=== PATIENT | male | born 1950 | race Caucasian/White ===

== ENCOUNTER 2019-10-15 14:32 | Observation (INO) | payer MEDICARE ==
[~2019-10-15] VITALS: Ht 188 cm; Wt 97.0 kg
[~2019-10-15 14:32] MED LIST: CLAR250T43 PO; HYDR-3965 PO; METR-159 PO; NO HOME MEDS; PANT40VI2 PO
[2019-10-15 15:18] LABS: EOSINOPHILS # (AUTO) 0.1 X10'3 (0-0.9); LYMPHOCYTES # (AUTO) 1.7 X10'3 (1.1-4.8); MONOCYTES # (AUTO) 0.7 X10'3 (0-0.9); NEUTROPHILS # (AUTO) 4.6 X10'3 (1.8-7.7); WHITE BLOOD COUNT 7.1 X10'3 (4.5-11.0)
[2019-10-15 15:20] LABS: BASOPHILS % (AUTO) 0.6 % (0-1); HEMATOCRIT 48.6 % (42.0-52.0); HEMOGLOBIN 16.5 g/dl (14.0-17.9); LYMPHOCYTES % (AUTO) 24.1 % (21-51); MEAN CORPUSCULAR HEMOGLOBIN 29.8 PG (27.0-31.0); MEAN CORPUSCULAR HGB CONC 33.9 g/dL (33.0-36.5); MEAN CORPUSCULAR VOLUME 87.9 FL (78-98); MEAN PLATELET VOLUME 9.1 FL (7.4-10.4); MONOCYTES % (AUTO) 9.9 % (2-12); NEUTROPHILS % (AUTO) 64.4 % (42-75); PLATELET COUNT 151 X10'3 (140-440); RED BLOOD COUNT 5.52 X10'6 (4.70-6.10); RED CELL DISTRIBUTION WIDTH 13.6 % (11.5-14.5)
[2019-10-15 15:24] LABS: ALANINE AMINOTRANSFERASE 40 U/L (12-78); ALBUMIN 3.6 G/DL (3.4-5.0); ALKALINE PHOSPHATASE 56 IU/L (46-116); ANION GAP 6 (8-16); ASPARTATE AMINO TRANSFERASE 25 U/L (10-37); BILIRUBIN,TOTAL 0.4 MG/DL (0.1-1.0); BLOOD UREA NITROGEN 13 MG/DL (7-18); BUN/CREATININE RATIO 13.7 (5.4-32.0); CALCIUM 8.8 MG/DL (8.5-10.1); CHLORIDE 104 MMOL/L (99-107); CREATININE 0.95 MG/DL (0.60-1.10); GLUCOSE 125 MG/DL (70-104); POTASSIUM 3.8 MMOL/L (3.5-5.1); SODIUM 139 MMOL/L (135-145); TOTAL CARBON DIOXIDE 28.7 MMOL/L (24-32); TOTAL PROTEIN 7.2 G/DL (6.4-8.2); eGFR 79 ML/MIN
[2019-10-15 15:35] LABS: D-DIMER < 0.19 MG/L FEU (0-0.50)
--- NOTE | 2019-10-15 16:00 | NUR ---
PATIENT AMBULATED WITH STANDBY ASSISTp: NO SOB, NO CP, 150 FEET
[2019-10-15] MEDS ORDERED: OMEP-297 PO (16:15)
[2019-10-15] MEDS ORDERED: potassium Cl 20 mEq SR tablet PO PRN ×2 (16:30)
[2019-10-15] MEDS ORDERED: magnesium 4gm in 100ml NS 100 ML IV PRN (16:30)
[2019-10-15] MEDS ORDERED: nitroGLYCERIN 0.4mg SUBLingual tab SL PRN ×2 (16:30→19:35)
[2019-10-15] MEDS ORDERED: potassium CL 10mEq/100ml bag 100 ML IV PRN ×2 (16:30)
[2019-10-15] MEDS ORDERED: acetaminophen 325mg tablet PO PRN ×2 (16:30)
[2019-10-15] MEDS ORDERED: magnesium Cl slow-release 64mg tablet PO PRN (16:30)
[2019-10-15] MEDS ORDERED: ondansetron/PF 4mg/2ml inj IV PRN (16:30)
[2019-10-15] MEDS ORDERED: morphine 2 MG/ML inj. syringe IV PRN ×2 (16:30)
[2019-10-15] MEDS ORDERED: magnesium 2GM in 50ml NS 50 ML IV PRN (16:30)
[2019-10-15] MEDS ORDERED: magnesium hydroxide 30ml (MOM) UD suspension PO PRN (16:30)
[2019-10-15] MEDS ORDERED: mag hydrox/Alum hydrox/simeth 30ml oral suspension PO PRN (16:30)
[2019-10-15] MEDS ORDERED: iohexol 350MG/ML 100ml bottle IV ONE (16:45)
[2019-10-15] MEDS ORDERED: metoprolol tartrate 1mg/ml inj IV PRN (19:35)
[2019-10-15] MEDS ORDERED: regadenoson 0.4mg/5ml syringe IV PRN (19:35)
[2019-10-15] MEDS ORDERED: aminophylline 250mg/10ml inj. IV PRN (19:35)
[2019-10-15] MEDS: K and/or MAG REPLACEMENT MC SCH (20:00)
[2019-10-15] MEDS ORDERED: metoprolol tartrate 50mg tablet PO SCH (20:00)
[2019-10-15] MEDS ORDERED: metoprolol tartrate 12.5mg (1/2 tablet) PO SCH (20:47)
[2019-10-15] MEDS ORDERED: metoprolol tartrate 12.5mg (1/2 tablet) PO ONE (20:55)
[2019-10-15] MEDS ORDERED: metoprolol tartrate 50mg tablet PO ONE (20:55)
--- NOTE | 2019-10-15 21:45 | NUR ---
RECEIVED PATIENT TO ROOM 4013B FROM ER AND ASSUMED PATIENT CARE. ALL BELONGINGS WITH PATIENT. NO C/O CHEST PAIN AT THIS TIME. PLAN OF CARE EXPLAINED. ALL QUESTIONS ANSWERED
[2019-10-15 22:05] VITALS: BP 159/103
[2019-10-15 22:19] LABS: HEMOGLOBIN A1C 6.4 % (4.5-6.2)
[2019-10-16] VITALS (8 sets, daily range): BP systolic 118–138; BP diastolic 60–89
[2019-10-16 02:46] LABS: BASOPHILS % (AUTO) 0.5 % (0-1); EOSINOPHILS # (AUTO) 0.2 X10'3 (0-0.9); HEMATOCRIT 47.7 % (42.0-52.0); HEMOGLOBIN 16.5 g/dl (14.0-17.9); LYMPHOCYTES # (AUTO) 2.8 X10'3 (1.1-4.8); LYMPHOCYTES % (AUTO) 35.4 % (21-51); MEAN CORPUSCULAR HEMOGLOBIN 30.2 PG (27.0-31.0); MEAN CORPUSCULAR HGB CONC 34.6 g/dL (33.0-36.5); MEAN CORPUSCULAR VOLUME 87.1 FL (78-98); MEAN PLATELET VOLUME 9.3 FL (7.4-10.4); MONOCYTES # (AUTO) 0.9 X10'3 (0-0.9); MONOCYTES % (AUTO) 11.1 % (2-12); NEUTROPHILS # (AUTO) 4.1 X10'3 (1.8-7.7); PLATELET COUNT 152 X10'3 (140-440); RED BLOOD COUNT 5.48 X10'6 (4.70-6.10); RED CELL DISTRIBUTION WIDTH 13.7 % (11.5-14.5)
[2019-10-16 03:00] LABS: ALBUMIN 3.3 G/DL (3.4-5.0); ANION GAP 8 (8-16); BLOOD UREA NITROGEN 14 MG/DL (7-18); BUN/CREATININE RATIO 15.2 (5.4-32.0); CALCIUM 8.6 MG/DL (8.5-10.1); CHLORIDE 106 MMOL/L (99-107); CREATININE 0.92 MG/DL (0.60-1.10); GLUCOSE 135 MG/DL (70-104); MAGNESIUM 1.9 MG/DL (1.5-2.4); POTASSIUM 3.6 MMOL/L (3.5-5.1); SODIUM 140 MMOL/L (135-145); TOTAL CARBON DIOXIDE 26.2 MMOL/L (24-32); eGFR 82 ML/MIN
[2019-10-16 03:01] LABS: CHOL/HDL RATIO 2.6 (0.00-4.99); CHOLESTEROL 124 MG/DL (0-200); HDL CHOLESTEROL 48 MG/DL (35-60); LDL CHOLESTEROL 70 MG/DL (50-100); TRIGLYCERIDES 87 MG/DL (20-135)
--- NOTE | 2019-10-16 06:00 | NUR ---
REPORT GIVEN TO RAYSHAWN BENNETT
--- NOTE | 2019-10-16 06:44 | NUR ---
Patient in room [facility]TH[facility] 4013B. I have received report from GEMMA BENNETT and had the opportunity to ask questions and assume patient care.
[2019-10-16] MEDS: K and/or MAG REPLACEMENT MC SCH (07:22)
[2019-10-16] MEDS ORDERED: pantoprazole 40mg Tablet.DR PO SCH (07:30)
[2019-10-16] MEDS ORDERED: aspirin 325mg tablet, delayed-release (Ecotrin) PO SCH (08:00)
[2019-10-16] MEDS ORDERED: enoxaparin 40mg/0.4ml syringe SQ SCH (08:00)
--- NOTE | 2019-10-16 12:37 | NUR ---
DM Consult: Pt A1C <7 and not appropriate for ed at this time. Addendum: 10/16/19 at [address] Amended: Links added.
[2019-10-16] MEDS ORDERED: ASPI81TA52 PO (16:10)
[2019-10-16] MEDS ORDERED: METO25TA6 PO (16:10)
[2019-10-16] MEDS ORDERED: NITR0.4T51 SL (16:10)
--- NOTE | 2019-10-16 16:45 | NUR ---
PT DC HOME WITH , RX CALLED TO [facility]. PT STABLE.
== END 2019-10-16 16:45 | disposition home or self-care (01) ==
LOC: ER 14:32 → ED HOLD 16:45 → ORTHO 4S 21:30
PROVIDERS: ADMIT Hospitalist; ATTEND Hospitalist
DX: R07.89 Other chest pain (principal); R00.2 Palpitations; I10 Essential (primary) hypertension; R42 Dizziness and giddiness; E11.9 Type 2 diabetes mellitus without complications; R09.02 Hypoxemia; Z90.89 Acquired absence of other organs; Z79.899 Other long term (current) drug therapy; Z88.0 Allergy status to penicillin
CPT/HCPCS: 36415; 71045; 71275; 78452; 80048; 80053; 80061; 83036; 83735; 84484; 85025; 85379; 87081; 93005; 93017; 93306; 96372; 99284; A9500; G0378; J2785; Q9967; J1650

== ENCOUNTER 2020-11-04 14:46 | Emergency (ER) | payer MEDICARE ==
[~2020-11-04] VITALS: Ht 188 cm; Wt 106.8 kg
[~2020-11-04 14:46] MED LIST changes: +ASPI81TA52 PO; -CLAR250T43 PO; -HYDR-3965 PO; +METO25TA6 PO; -METR-159 PO; -NO HOME MEDS; +OMEP20CA15 PO; -PANT40VI2 PO
[2020-11-04 15:11] VITALS: BP 172/100
== END 2020-11-04 20:40 | disposition left against medical advice (07) ==
LOC: ER 14:46
DX: I10 Essential (primary) hypertension (principal); Z53.21 Procedure and treatment not carried out due to patient leaving prior to being seen by health care provider

== ENCOUNTER 2022-01-25 05:37 | Day surgery (SDC) | payer MEDICARE ==
[2022-01-19 10:33] LABS: BASOPHILS # (AUTO) 0.1 X10'3 (0-0.2); BASOPHILS % (AUTO) 1.9 % (0-1); EOSINOPHILS # (AUTO) 0.1 X10'3 (0-0.9); LYMPHOCYTES # (AUTO) 1.7 X10'3 (1.1-4.8); LYMPHOCYTES % (AUTO) 28.7 % (21-51); MEAN CORPUSCULAR HEMOGLOBIN 28.8 PG (27.0-31.0); MEAN CORPUSCULAR HGB CONC 33.5 g/dL (33.0-36.5); MEAN PLATELET VOLUME 8.7 FL (7.4-10.4); MONOCYTES # (AUTO) 0.6 X10'3 (0-0.9); MONOCYTES % (AUTO) 10.9 % (2-12); NEUTROPHILS # (AUTO) 3.3 X10'3 (1.8-7.7); NEUTROPHILS % (AUTO) 57.5 % (42-75); PRE OP HEMATOCRIT 48.5 % (42.0-52.0); PRE OP HEMOGLOBIN 16.2 g/dL (14.0-17.9); PRE OP PLATELET COUNT 162 X10'3 (140-440); RED BLOOD COUNT 5.63 X10'6 (4.70-6.10); RED CELL DISTRIBUTION WIDTH 13.6 % (11.5-14.5)
[2022-01-19 10:46] LABS: ALBUMIN/GLOBULIN RATIO 1.1 (1.1-1.5); ALKALINE PHOSPHATASE 51 IU/L (46-116); BLOOD UREA NITROGEN 11 MG/DL (7-18); BUN/CREATININE RATIO 13.1 (5.4-32.0); CALCIUM 9.2 MG/DL (8.5-10.1); CHLORIDE 101 MMOL/L (99-107); CREATININE 0.84 MG/DL (0.60-1.10); PRE OP ALT 54 U/L (30-65); PRE OP ANION GAP 10 (8-16); PRE OP AST 32 U/L (10-37); PRE OP BILIRUB, TOTAL 0.7 MG/DL (0.0-1.0); PRE OP GLUCOSE 114 MG/DL (70-104); PRE OP POTASSIUM 4.3 MMOL/L (3.4-5.1); PRE OP SODIUM 139 MMOL/L (135-145); TOTAL CARBON DIOXIDE 27.6 MMOL/L (24-32); TOTAL PROTEIN 7.7 G/DL (6.4-8.2); eGFR > 90 ML/MIN
[~2022-01-25] VITALS: Ht 188 cm; Wt 100.3 kg
[~2022-01-25 05:37] MED LIST changes: -ASPI81TA52 PO; -METO25TA6 PO; +cefazolin/dext.iso 2gm/50ml IV ONE; +famotidine 20mg tablet PO ONE; +ringers solution, lacted 1,000 ML IV SCH
[2022-01-25 06:53] VITALS: BP 146/85
[2022-01-25 06:56] VITALS: BP 146/85
[2022-01-25] MEDS ORDERED: LIDOcaine 0.5% (5mg/ml) 50ml vial ONE (07:05)
[2022-01-25] MEDS ORDERED: hydrALAZINE 20mg/ml inj. IV PRN (07:10)
[2022-01-25] MEDS ORDERED: ondansetron/PF 4mg/2ml inj IV PRN (07:10)
[2022-01-25] MEDS ORDERED: ringers solution, lacted 1,000 ML IV SCH (07:10)
[2022-01-25] MEDS ORDERED: morphine 4 MG/ML inj SYRINge IV PRN (07:10)
[2022-01-25] MEDS ORDERED: morphine 2 MG/ML inj. syringe IV PRN (07:10)
[2022-01-25] MEDS ORDERED: labetalol 20mg/4ml (5mg/ml) syringe IV PRN (07:10)
[2022-01-25] MEDS ORDERED: fentaNYL/PF 50MCG/1 ML 2ML syringe IV PRN ×2 (07:10)
[2022-01-25] MEDS ORDERED: BUPIVAcaine 0.5% inj/PF 30 ML ONE (08:33)
[2022-01-25] MEDS ORDERED: FENTANYL CITRATE/PF 50 MCG/1 ML VIAL ONE (08:41)
[2022-01-25] MEDS ORDERED: MIDAZolam 1 MG/ML 5ML VIAL ONE (08:41)
[2022-01-25 09:15] VITALS: BP 132/91
--- NOTE | 2022-01-25 09:15 | NUR ---
Received from OR via [facility] IN STABLE CONDITON , accompanied by Anesthesiologist and COMPUTER SUPPORT ANALYST report given by COMPUTER SUPPORT ANALYST AND Anesthesiolgist. Addendum: 01/25/22 at 0932 by Karen Anglin RN Amended: Links added.
[2022-01-25 09:20] VITALS: BP 132/91
[2022-01-25 09:30] VITALS: BP 135/86
[2022-01-25 09:40] VITALS: BP 133/90
--- NOTE | 2022-01-25 10:05 | NUR ---
PATIENT DISCHARGED FROM PACU IN STABLE CONDITION AFTER VERBAL AND WRITTEN DISCHARGE INSTRUCTIONS. PATIENT GAVE VERBAL UNDERSTANDING OF INSTRUCTIONS GIVEN. PATIENT LEFT FACILITY VIA WHEELCHAIR WITH VOLUNTEER. Addendum: 01/25/22 at 1010 by Karen Anglin RN Amended: Links added.
== END 2022-01-25 10:05 | disposition home or self-care (01) ==
LOC: PAS 05:37
PROVIDERS: ATTEND Orthopaedic Surgery Hand Surgery
DX: G56.02 Carpal tunnel syndrome, left upper limb (principal); M67.432 Ganglion, left wrist; K21.9 Gastro-esophageal reflux disease without esophagitis; E11.9 Type 2 diabetes mellitus without complications; M06.9 Rheumatoid arthritis, unspecified; Z20.822 Contact with and (suspected) exposure to COVID-19; Z90.49 Acquired absence of other specified parts of digestive tract; Z98.890 Other specified postprocedural states; Z87.891 Personal history of nicotine dependence; Z85.828 Personal history of other malignant neoplasm of skin; Z88.0 Allergy status to penicillin
CPT/HCPCS: 25111; 36415; 64721; 80053; 82948; 85025; 93005; J0690; J2250; J3010; J3490; J7030; J7120; S0020; U0003; U0005; Z7506; Z7512; A4215; A6449